=== PATIENT | male | born 2000 | race Caucasian/White ===

== ENCOUNTER 2018-12-19 16:17 | Emergency (ER) | payer OTHER ==
--- NOTE | 2018-12-19 16:55 | ED ---
Psychiatric Complaint - HPI Summary HPI Summary: Patient is a 18 y/o male who presents to the ED c/o depression. He is diagnosed with depression and insomnia, but bipolar disorder has not been completely ruled out yet. Recently his depression has been worse and he feels like he is at a low point. He also c/o sleep deprivation and fleeting SI, and often thinks about using a gun. He states he does not have access to a gun. Patient describes his SI as impulses that are concerning to him, and a part of his brain takes over. However patient always reaches out for help when he has SI. As per nurses note, he has a hx of occasional liliya. He came today because both his parents and he want him to have a MHE. Patients father is concerned for a possible drug interaction between his medications. Patient is currently prescribed Wellbutrin, Vyvanse, Xanax, Cartia, and Olanzapine. Recently he has had issues controlling his insomnia; patient was switched from Seroquel to Olanzapine to Trazodone, and finally back to Olanzapine. Patients father states that 2 years ago he had a similar episode where his academics have declined in the second semester. He denies any drug or alcohol use. Patient smokes with a vape. - History Of Current Complaint Chief Complaint: EDMentalHealth Time Seen by Provider: 12/19/18 16:34 Hx Obtained From: Patient Onset/Duration: Gradual Onset, Worse Since Timing: Constant Character: Depressed Aggravating Factor(s): Nothing Alleviating Factor(s): Nothing Associated Signs And Symptoms: Positive: Sleep Disturbance Related History: Positive For: Prior Psychiatric Issues Has Suicidal: Reports: Thoughts. Denies: Has Prior Attempt(s) - Allergies/Home Medications Allergies/Adverse Reactions: Allergies Allergy/AdvReac Type Severity Reaction Status Date / Time No Known Allergies Allergy Verified 12/19/18 16:27 Home Medications: Home Medications ALPRAZolam [Alprazolam] 2 mg PO DAILY 12/19/18 [History Confirmed 12/19/18] Cetirizine* [ZyrTEC 10 MG TAB*] 10 mg PO DAILY 12/19/18 [History Confirmed 12/19] Lisdexamfetamine Dimesylate [Vyvanse] 50 mg PO DAILY 12/19/18 [History Confirmed 12/19/18] OLANzapine TAB* [Zyprexa 10 MG TAB*] 20 mg PO BEDTIME 12/19/18 [History Confirmed 12/19/18] buPROPion HCl [Bupropion HCl Xl] 450 mg PO DAILY 12/19/18 [History Confirmed ] dilTIAZem HCl [Cartia Xt] 180 mg PO DAILY 12/19/18 [History Confirmed 12/19/18] PMH/Surg Hx/FS Hx/Imm Hx Endocrine/Hematology History: Denies: Hx Diabetes Psychiatric History: Reports: Hx Depression - possible bipolar disorder, occasional liliya, Other Psychiatric Issues/Disorders - Insomnia Infectious Disease History: No Infectious Disease History: Denies: Traveled Outside the [place] in Last 30 Days - Family History Known Family History: Positive: Other - mental health issues - Social History Alcohol Use: None Hx Substance Use: No Substance Use Type: Reports: None Hx Tobacco Use: Yes Smoking Status (MU): Current Every Day Smoker Type: eCigarettes Review of Systems Negative: Fever Positive: Depressed, Other - SI, sleep disturbance All Other Systems Reviewed And Are Negative: Yes Physical Exam - Summary Physical Exam Summary: Appearance: Well appearing, no pain distress Skin: warm, dry, reflects adequate perfusion Head/face: normal Eyes: EOMI, ULISES ENT: mucous membranes moist Neck: supple, non-tender Respiratory: CTA, breath sounds present Cardiovascular: RRR, pulses symmetrical Abdomen: non-tender, soft Bowel Sounds: present Musculoskeletal: normal, strength/ROM intact Neuro: normal, sensory motor intact, A&Ox3 Triage Information Reviewed: Yes Vital Signs On Initial Exam: Initial Vitals Temp Pulse Resp BP Pulse Ox 99.3 F 92 16 119/74 74 12/19/18 16:22 12/19/18 16:22 12/19/18 16:22 12/19/18 16:22 12/19/18 16:22 Vital Signs Reviewed: Yes Diagnostics - Vital Signs Vital Signs Temp Pulse Resp BP Pulse Ox 12/19/18 16:22 99.3 F 92 16 119/74 74 - Laboratory Lab Statement: Any lab studies that have been ordered have been reviewed, and results considered in the medical decision making process. Re-Evaluation - Re-Evaluation First Eval Re-Evaluation Time: 17:10 Change: Unchanged Comment: Pt is medically cleared for a MHE. Course/Dx - Course Course Of Treatment: Nurse's notes reviewed. Patient was medically evaluated and cleared for mental health evaluation. He is pending this crisis evaluation at time of sign out to oncoming ER physician. - Differential Dx/Clinical Impression Differential Diagnosis/HQI/PQRI: Positive: Anxiety, Bipolar Disorder, Suicidal Ideation Provider Diagnosis: Bipolar 1 disorder, Insomnia Discharge - Sign-Out/Discharge Documenting (check all that apply): Sign-Out Patient Signing out patient TO: Hellen Gregg Patient Received Moderate/Deep Sedation with Procedure: No - Discharge Plan Condition: Stable Referrals: Suman Sanchez MD [Primary Care Provider] - - Billing Disposition and Condition Condition: STABLE - Attestation Statements Document Initiated by Scribe: Yes Documenting Scribe: Haven Orozco Provider For Whom Scribe is Documenting (Include Credential): Antonio Ireland MD Scribe Attestation: Haven Masterson, scribed for Antonio Ireland MD on 12/19/18 at 1830. Scribe Documentation Reviewed: Yes Provider Attestation: The documentation as recorded by the Haven nicole accurately reflects the service I personally performed and the decisions made by Antonio ospina MD Status of Scribe Document: Viewed
--- NOTE | 2018-12-19 19:40 | ED ---
Progress - Progress Note Progress Note: Patient was signed out from Dr. Ireland upon shift change pending MHE and disposition. Per OLIVIA and Dr. Barrow, the patient will be discharged home with a diagnosis of mood disorder. - Consult/PCP Time Called: 16:17 Re-Evaluation - Re-Evaluation First Eval Re-Evaluation Time: 17:10 Change: Unchanged Comment: Pt is medically cleared for a MHE. Course/Dx - Course Course Of Treatment: Patient was signed out from Dr. Ireland upon shift change pending MHE and disposition. Patient was medically evaluated and cleared for mental health evaluation. Per OLIVIA and Dr. Barrow, patient will be discharged home with a diagnosis of mood disorder. Patient is agreeable with this plan. - Diagnoses Provider Diagnoses: Mood disorder Discharge - Sign-Out/Discharge Documenting (check all that apply): Patient Departure - Discharge jase, Receiving Sign-Out Receiving patient FROM: Antonio Ireland - Upon shift change pending MHE and disposition Patient Received Moderate/Deep Sedation with Procedure: No - Discharge Plan Condition: Stable Disposition: HOME Patient Education Materials: Mood Disorders (ED) Referrals: Suman Sanchez MD [Primary Care Provider] - - Attestation Statements Document Initiated by Scribe: Yes Documenting Scribe: Kortney Salazar Provider For Whom Scribe is Documenting (Include Credential): Dr. Hellen Gregg MD Scribe Attestation: Kortney Masterson, scribed for Dr. Hellen Gregg MD on 12/19/18 at 1939. Status of Scribe Document: Ready
[2018-12-19 19:44] VITALS: BP 119/76
== END 2018-12-19 19:43 | disposition home or self-care (01) ==
LOC: ED 16:17
DX: F39 Unspecified mood [affective] disorder (principal)
CPT/HCPCS: 99283